=== PATIENT | female | born 1970 | race Caucasian/White ===

== ENCOUNTER 2021-04-16 00:10 | Emergency (ER) | payer BC, OTHER ==
[~2021-04-16] VITALS: Ht 157.5 cm; Wt 82.6 kg
[2021-04-16 00:20] VITALS: BP 135/68
--- NOTE | 2021-04-16 00:20 | NUR ---
to bed via w/c
--- NOTE | 2021-04-16 00:25 | NUR ---
RECEIVED IN BED 1 WITH C/O LEFT LEG PAIN X 2 WEEKS, WHICH IS WORSE TODAY. PT AMBULATES WITH SLIGHTLY GUARDED GAIT
--- NOTE | 2021-04-16 00:55 | NUR ---
Dr. Hawthorne examining patient.
[2021-04-16] MEDS ORDERED: NAPR-54 PO (01:12)
[2021-04-16] MEDS: ACETAMINOPHEN EXTRA STRENGTH 500 MG TAB PO ONE (01:18)
[2021-04-16 01:27] VITALS: BP 135/68
== END 2021-04-16 01:27 | disposition home or self-care (01) ==
LOC: EDSEX 00:10 → MED 00:10
DX: S83.92XA Sprain of unspecified site of left knee, initial encounter (principal); W19.XXXA Unspecified fall, initial encounter; Y93.89 Activity, other specified; Y92.89 Other specified places as the place of occurrence of the external cause; Y99.8 Other external cause status
CPT/HCPCS: 29505; 73562; 99283